=== PATIENT | male | born 1980 | race American Indian/Alaskan Native ===

== ENCOUNTER 2016-10-23 07:45 | Day surgery (SDC) | payer MEDICARE ==
[~2016-10-23 07:45] MED LIST: ANCEF/STERILE WATER 2 GM/20 ML 2 GM/20 ML SYRINGE IV NR; NACL 0.9% 1000 ML 1,000 ML IV SCH
--- NOTE | 2016-10-23 09:17 | Anesthesia Day of Surgery ---
Anesthesia Day of Surgery - Day of Surgery Patient Examined: Yes Patient H&P Reviewed: Yes Patient is NPO: Yes Beta Blockers: Yes Cardiac Clearance: No Pulmonary Clearance: No
--- NOTE | 2016-10-23 09:18 | Anesthesia Consultation ---
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
[2016-10-23] MEDS ORDERED: MARCAINE 0.5% INFILTRATI ONE ×4 (09:26→12:29)
[2016-10-23] MEDS ORDERED: NACL 0.9% 500 ML 500 ML ONE (09:26)
[2016-10-23] MEDS ORDERED: HEPARIN 10,000 UNITS/10 ML ONE (09:26)
[2016-10-23 09:29] LABS: Basophils % (Auto) 1.1 % (0.0-1.8); Hematocrit 35.2 % (35.5-45.6); Hemoglobin 11.3 gm/dl (11.8-15.2); Mean Corpuscular HGB Conc 32 % (32-34); Mean Corpuscular Volume 78 fl (84-94); Platelet Count 178 K/mm3 (140-440); Red Blood Count 4.53 M/mm3 (3.65-5.03); Red Cell Distribution Width 18.8 % (13.2-15.2); White Blood Count 5.9 K/mm3 (4.5-11.0)
[2016-10-23] MEDS ORDERED: DIPRIVAN 10 MG/ML IV ONE (09:30)
[2016-10-23] MEDS ORDERED: DILAUDID ONE (09:31)
[2016-10-23] MEDS ORDERED: XYLOCAINE MPF 2% ONE (09:31)
[2016-10-23 09:36] LABS: BUN/Creatinine Ratio 4.24; Calcium 9.3 mg/dL (8.4-10.2); Chloride 92.8 mmol/L (98-107); Potassium 5.1 mmol/L (3.6-5.0)
[2016-10-23 09:40] LABS: INR 1.26 (0.87-1.13)
[2016-10-23 09:42] LABS: Mean Corpuscular Hemoglobin 25 pg (28-32)
[2016-10-23] MEDS ORDERED: PEPCID PO NR (10:00)
[2016-10-23] MEDS ORDERED: VERSED IV NR (10:00)
[2016-10-23] MEDS ORDERED: ZOFRAN IV NR (10:00)
[2016-10-23] MEDS ORDERED: HEPARIN ONE ×2 (10:02→10:48)
[2016-10-23] MEDS ORDERED: OMNIPAQUE (240mg) IV ONE (10:30)
[2016-10-23] MEDS ORDERED: HEPARIN 10,000 UNITS/10 ML IV ONE (10:50)
[2016-10-23] MEDS ORDERED: NACL 0.9% IR ONE (10:54)
[2016-10-23] MEDS ORDERED: NACL 0.9% 500 ML IV ONE (10:55)
[2016-10-23] MEDS ORDERED: HEPARIN IV ONE (10:56)
[2016-10-23] MEDS ORDERED: DILAUDID IV PRN (12:00)
[2016-10-23] MEDS ORDERED: SUBLIMAZE IV PRN (12:00)
[2016-10-23] MEDS ORDERED: MARCAINE 0.5% 30 ML INFILTRATI ONE (12:23)
[2016-10-23] MEDS ORDERED: ZOFRAN ONE (12:29)
--- NOTE | 2016-10-23 12:37 | Fluoroscopy Report ---
FLUOROSCOPY CENTRAL VENOUS DEVICE PLACEMENT INDICATION: Pseudoaneurysm left arm. Right-sided permacath insertion. COMPARISON: 04/29/2009 chest radiograph. FINDINGS: Single, frontal upper chest intraoperative fluoroscopic view demonstrates grossly unremarkable right-sided central catheter. CONCLUSION: Intraoperative fluoroscopic guidance provided, as described. Thank you for the opportunity to participate in this patient's care.
[2016-10-23] MEDS ORDERED: DDAVP 20 MCG in NACL 0.9% 50 ML IV ONE (13:00)
--- NOTE | 2016-10-23 13:00 | Short Stay Summary ---
Short Stay Documentation Date of service: 10/23/16 Narrative H&P: See H&P - Allergies and Medications Current Medications: Allergies strawberry Allergy (Verified 10/20/16 09:18) Hives, Throat swells Home Medications Medication Instructions Recorded Confirmed Last Taken Type Clonidine HCl [Catapres] 0.3 mg PO TID 10/20/16 10/20/16 10/23/16 06:30 History Furosemide [Lasix TAB] 80 mg PO QDAY 10/20/16 10/20/16 10/22/16 History Hydralazine HCl [Apresoline TAB] 50 mg PO TID 10/20/16 10/20/16 10/22/16 History Labetalol [Normodyne] 200 mg PO QDAY 10/20/16 10/20/16 10/22/16 History Lisinopril [Zestril] 40 mg PO QDAY 10/20/16 10/20/16 10/23/16 06:30 History Ondansetron [Zofran Odt] 4 mg PO Q8HR PRN 10/20/16 10/20/16 10/22/16 History Pantoprazole [Protonix] 40 mg PO QDAY 10/20/16 10/20/16 10/22/16 History Sucralfate [Carafate] 1 gm PO ACHS 10/20/16 10/20/16 10/22/16 History Active Medications Famotidine (Pepcid) 20 mg PO PREOP NR Stop: 10/23/16 15:00 Last Admin: 10/23/16 09:30 Dose: 20 mg Fentanyl (Sublimaze) 50 mcg IV Q5MIN PRN PRN Reason: Pain , Severe (7-10) Stop: 10/26/16 12:01 Hydromorphone HCl (Dilaudid) 0.5 mg IV Q10MIN PRN PRN Reason: Pain , Severe (7-10) Stop: 10/26/16 12:01 Cefazolin Sodium (Ancef/Sterile Water 2 Gm/20 Ml) 2 gm in 20 mls @ 80 mls/hr IV PREOP NR PRN Reason: Protocol Stop: 10/23/16 23:59 Sodium Chloride (Nacl 0.9% 1000 Ml) 1,000 mls @ 42 mls/hr IV DIRECT BEN Last Admin: 10/23/16 09:00 Dose: 42 mls/hr Desmopressin Acetate 20 mcg/ (Sodium Chloride) 55 mls @ 100 mls/hr IV ONCE ONE Stop: 10/23/16 13:32 Midazolam HCl (Versed) 2 mg IV PREOP NR Stop: 10/23/16 23:59 Last Admin: 10/23/16 09:33 Dose: 2 mg Ondansetron HCl (Zofran) 4 mg IV PREOP NR Stop: 10/23/16 15:00 Last Admin: 10/23/16 09:34 Dose: 4 mg - Brief post op/procedure progress note Date of procedure: 10/23/16 Pre-op diagnosis: Complications of Dialysis Access Post-op diagnosis: same Procedure: 1. Ultrasound-Guided Access Right Internal Jugular Vein 2. Placement of 23 cm GlidePath Permacath 3. Radiologic Supervision and Interpretation 4. Revision of Left Brachiocephalic Arteriovenous Fistula Anesthesia: DALILA Surgeon: KATINA SHANNON Estimated blood loss: other (300 mL) Pathology: list (Left AVF Pseudoaneurysm) Specimen disposition: to lab Condition: stable - Disposition Condition at discharge: Good Disposition: DISCHARGED TO HOME OR SELFCARE Short Stay Discharge Plan Activity: other (no heavy lifting with left arm) Wound: keep clean and dry, remove dressing (okay to remove the Stephen bandage in 24 hours), other (okay to wash the wound with soap and water but do not soak in water, do not allow permacath to get wet) Follow up with: KATINA SHANNON MD [Staff Physician] - 14 Days Prescriptions: HYDROcodone/APAP 7.5-325 [[place] 7.5/325] 1 each PO Q6HR PRN #90 tablet PRN Reason: Pain
--- NOTE | 2016-10-23 13:09 | Operative Report ---
Operative Report Operative Report: Date of procedure: 10/23/2016 Pre-operative diagnosis: Complications of Dialysis Access Post-operative diagnosis: Same Procedure(s): 1. Ultrasound-Guided Access Right Internal Vein 2. Placement of 23 cm GlidePath Permacath 3. Radiologic Supervision with Interpretation 4. Revision with Elevation Of Left AV Fistula Surgeon: Erick Flaherty MD Secret Code Expert: None Anesthesia: Gen. Endotracheal Anesthesia EBL: 300 mL Counts: Correct Complications: None Condition: Stable Findings: Successful placement of right IJ permacath both ports aspirated and flushed easily. Successful revision of left AV fistula with excellent thrill at the end of the case. Specimen: Left AV fistula pseudoaneurysm sent to pathology. Indication: The patient is a 36-year-old male with history of end-stage renal disease who is currently on hemodialysis through a left arm AV fistula. He has 2 large pseudoaneurysms with thinning of the skin and eminent rupture. He is in need of revision of the fistula to prevent bleeding. He was given the risks, benefits, and alternative procedures and consented to the procedure. Description of Procedure: The patient was brought to the operating room and laid in supine position. After general endotracheal anesthesia was achieved his right neck and chest were prepped and draped in normal sterile fashion. Ultrasound was used to identify the right internal jugular vein and the overlying skin and soft tissue was anesthetized with lidocaine. A small stab incision was made and then the access needle was used ultrasound guidance in the right internal jugular vein. An 035 J-wire was advanced to the central venous system under fluoroscopic guidance. The tract was serially dilated up to a 16 [place]gu[place] peel-away safety sheath and the inner cannula and wire removed. An exit site on the chest was then chosen and the presumed tunnel was anesthetized with lidocaine. A small stab incision was made on the chest and then the permacath was connected to the tunneler and pulled antegrade through the tunnel. The catheter was inserted into the safe sheath and safety sheath was pulled away. The catheter was positioned under fluoroscopy. Once in adequate position both ports were aspirated and flushed and then primed with the appropriate amount heparin. The neck incision was then closed with 4-0 Monocryl in interrupted subcuticular fashion and dressed with Surgicel. The catheters was dressed sterilely. Final fluoroscopy demonstrated the catheter was in excellent position without any evidence of pneumothorax. After completion of the permacath the sterile field was broken and his left arm was prepped and draped in a sterile fashion. A longitudinal incision, extending from the axilla to the antecubital crease, was created centered over the fistula. Sharp dissection was used to continue the dissection down to the fistula and the arterial inflow as well as the venous outflow were dissected circumferentially controlled vessel loops. I was unable to dissect the entire fistula is circumferentially including the 2 areas of pseudoaneurysm in the midportion of the fistula. There was enough redundancy in the fistula to remove the majority of the pseudoaneurysms and perform and end -to-end anastomosis. I resected the pseudoaneurysm and then beveled the 2 ends and created and an anastomosis using 2 5-0 Prolene running fashion. After completing the anastomosis all clamps were removed allowing flow in the fistula which had an excellent thrill. I then created a subcutaneous flap on the lateral aspect of the incision and placed a fistula in that flap. I then anesthetized the wound using Marcaine. Hemostasis within the wound was achieved with cautery and direct pressure. Once hemostasis was achieved the redundant skin over the area pseudoaneurysms was resected. The wound was closed in 2 layers using 3-0 Vicryl in a fashion the deep dermal layer and a 4- 0 Monocryl in running fashion and a subcuticular layer. The wound was then dressed with Dermabond and then covered with Telfa and a lightly wrapped 3 inch Stephen bandage. The patient tolerated the procedure well, all sponge needle and instrument counts were correct, the patient was taken to recovery in stable condition.
[2016-10-23] MEDS ORDERED: NORCO PO ONE (17:56)
[2016-10-23 18:18] VITALS: BP 149/88
--- NOTE | 2016-10-24 00:11 | Admit Criteria Form ---
Admission Criteria Documentation: AMBULATORY SURGERY EXCEPTION CRITERIA Ambulatory Surgery Exception Criteria ( Place 'X' for any and all applicable criteria): Surgery or procedure performed on ambulatory basis may require inpatient stay for[A] ANY ONE of the following(1)(2)(3)(4)(5)(6)(7)(8)(9): [X] I. A preoperative situation, condition, or finding that warrants inpatient stay as indicated by ANY ONE of the following: [] a) Inpatient care needed because of severity of a disease or condition rather than the surgery (eg, severe cardiac or respiratory disease, severe infection) (15) (16 ) (17) (18) [] b) Emergent procedure (eg, angioplasty for acute ischemia)(19) [] c) Complex surgical approach or situation as indicated by ANY ONE of the following(3): [] i) Open approach needed instead of usual endoscopic, transcatheter, or other less invasive procedure [] ii) Difficult approach because of previous operation [] iii) Airway monitoring required after open neck procedures(20)(21) [] iv) Large mass requiring unusually extensive dissection [] v) Additional complicating feature requiring inpatient care (eg, drain management)(22(23): [X] d) Major surgery in a pt with high anesthetic risk as indicated by ANY ONE of the following (2)(3)(5)(7)(8): [X] i) ASA risk class III or higher (severe systemic disease impairing function) [D] [] ii) Advanced age (eg, older than 85 years)(14)(24) [] iii) Symptomatic heart failure(25) [] iv) Symptomatic asthma or COPD(8)(21) [] v) Morbid obesity with hemodynamic or respiratory problems(20)( 21)(26)(27) [] vi) Obstructive sleep apnea(20)(21) [] vii) Former premature infants who are younger than 60 weeks [] viii) High risk for severe postoperative abnormalities (eg, severe postoperative hypocalcemia after parathyroidectomy for severe hyperparathyroidism)(27)( 28) [] ix) Unstable angina(25) [] e) Drug-related risk requiring inpatient stay as indicated by ANY ONE of the following(5)(10)(14)(32)(33) [] i) Procedure requires discontinuing drugs or other therapy (eg , antiarrhythmic medication, antiseizure medication), which necessitates inpatient observation or treatment.(18)(31) [] ii) Major surgery and high risk drug use as indicated by ANY ONE of the following: [] 1) Active abuse of cocaine or similar drug [] 2) Monoamine oxidase inhibitor use [] 3) Other drug identified as posing risk [] f) Inadequate outpatient care situation as indicated by ANY ONE of the following(5)(10)(14)(32)(33) [] i) Patient lives remote from medical facility and procedure has urgent complication potential, and temporary nearby residence cannot be arranged [] ii) Patient will have postprocedure incapacitation and inadequate assistance at home, or alternative level of care cannot be arranged. [] iii) Patient will have long general anesthesia or procedure side effect resolution time, and competent person to stay with patient on first postoperative night at home or alternative level of care cannot be arranged. []iv) Other inadequate outpatient situation that cannot be handled by other means [] II. A perioperative event, condition, or finding that warrants inpatient stay as indicated by ANY ONE of the following (1)(2)(3): [] a) Inadequate physiologic recovery: cardiovascular, respiratory, or hemodynamic status not normal or near preoperative baseline(18) [] b) Hemodynamic instability [] c) Patient not alert with near normal or baseline mental status [] d) Temperature not normal or as expected and not appropriate for outpatient treatment of condition [] e) Ambulatory or appropriate activity level status not yet achieved post procedure [E](34)(35)(36) [] f) Operative site not appropriate (eg, unexpected or excessive drainage or bleeding) [] g) Postoperative effects not resolved or adequately managed (eg, significant pain or vomiting not appropriate for outpatient or next level of care)(10)(12) [] h) Complicating features requiring inpatient care as indicated by ANY ONE of the following(37): [] i) Severe complications of procedure (eg, bowel injury, airway compromise, vascular injury,severe hemorrhage) [] ii) Extensive (eg, dissection far beyond usual scope of procedure ) or prolonged (eg, 120 minutes beyond usual) surgery needed requiring inpatient postoperative care [] iii) Conversion to an open or complex procedure that requires inpatient care (eg, open vs laparoscopic cholecystectomy, abdominal vs vaginal hysterectomy)(38) [] iv) Comorbid condition or test result identified during or post procedure that requires inpatient care (7) [] v) Malignant hyperthermia(30) [] vi) Other complicating feature requiring inpatient care(22)(23) Inpatient stay may be needed until ALL of the following are present (1)(2)(3)(4) (5)(6)(10)(14)(33)(40): []a) Physiologic recovery: cardiovascular, respiratory, and hemodynamic status normal or near preoperative baseline []b) Hemodynamic stability []c) Patient alert, with near normal or baseline mental status []d) Temperature appropriate: patient afebrile or temperature appropriate for outpt treatment of condition []e) Activity level appropriate: ambulatory or appropriate activity level post procedure []f) Operative site appropriate as indicated by ALL of the following: []i) Site dry or with expected drainage []ii) Any blood noted is as expected for procedure. []g) Postoperative effects resolved or managed as indicated by ALL of the following: []i) Pain management appropriate for outpatient (or next level of) care(10) []ii) Minimal nausea and vomiting: if present, successfully treated with oral medication(12) []iii) Headache, dizziness, or drowsiness (if present) are mild. []h) Voiding status acceptable as indicated by ANY ONE of the following: []i) Voiding spontaneously []ii) No voiding but instructions given for follow-up in 6 to 8 hours []iii) Urinary catheter in place, and instructions given for follow-up []i) Complicating features requiring inpatient care manageable at a lower level of care(37) []j) Comorbid conditions manageable at a lower level of care(37) The original [employer] content created by [employer] has been revised. The portions of the content which have been revised are identified through the use of italic text or in bold, and [facility] [email or web address] has neither reviewed nor approved the modified material. All other unmodified content is copyright [employer]. Please see references footnoted in the original [employer] edition 2016 Admission Criteria Met: Yes
== END 2016-10-23 18:10 | disposition home or self-care (01) ==
LOC: OR 07:45
PROVIDERS: ATTEND Surgery Vascular Surgery
DX: T82.898A Other specified complication of vascular prosthetic devices, implants and grafts, initial encounter (principal); D64.9 Anemia, unspecified; N18.6 End stage renal disease; F17.210 Nicotine dependence, cigarettes, uncomplicated; Z82.49 Family history of ischemic heart disease and other diseases of the circulatory system; Z86.73 Personal history of transient ischemic attack (TIA), and cerebral infarction without residual deficits; Z72.89 Other problems related to lifestyle; Z99.2 Dependence on renal dialysis; Z79.899 Other long term (current) drug therapy; Z83.3 Family history of diabetes mellitus; Z80.9 Family history of malignant neoplasm, unspecified; Z83.6 Family history of other diseases of the respiratory system; Y83.2 Surgical operation with anastomosis, bypass or graft as the cause of abnormal reaction of the patient, or of later complication, without mention of misadventure at the time of the procedure
CPT/HCPCS: 36415; 36558; 36832; 77001; 80048; 82962; 85025; 85610; 88304; C1750; C1769; J0690; J1170; J1644; J2250; J2405; J2597; J2704; J7030; J7040; Q9966